=== PATIENT | female | born 1980 | race Caucasian/White ===

== ENCOUNTER → 2018-06-07 | Outpatient (CLI) | payer BC, OTHER ==
[~2018-06-07] MED LIST: PROM25 PO
[2018-06-07 17:17] LABS: Source, Urine Catheter
[2018-06-07 17:50] LABS: Appearance, Urine Clear (Clear); Bilirubin, Urine Neg (Neg); Blood, Urine Neg (Neg); Color, Urine Yellow (P-Yellow); Glucose Qualitative, Urine Neg (Neg); Ketones, Urine Neg (Neg); Leukocyte Esterase, Urine Neg (Neg); Nitrite, Urine Neg (Neg); Protein, Urine Neg (Neg); Specific Gravity, Urine 1.025 (1.003-1.022); Urobilinogen, Urine NORM (Normal)
== END ==
LOC: LAB 17:13 → LAB SHORT 17:13
PROVIDERS: Obstetrics & Gynecology Gynecology
DX: L29.3 Anogenital pruritus, unspecified (principal)
CPT/HCPCS: 81003; 87070; 87205

== ENCOUNTER 2018-06-22 05:55 | Day surgery (SDC) | payer BC, OTHER ==
[~2018-06-22] VITALS: Ht 172.7 cm; Wt 105.0 kg
[~2018-06-22 05:55] MED LIST changes: +IBUP600 PO
--- NOTE | 2018-06-22 07:06 | NUR ---
Ambulatory in Day Surgery History, Chart, Medications and Allergies reviewed before start of procedure. Lungs clear T/O to Auscultation. Patient confirms NPO status and agrees with scheduled surgery. Patient States Post-Procedure ride home has been arranged. Patient ok to have students in OR to observe surgery.
--- NOTE | 2018-06-22 09:09 | NUR ---
RECEIVED REPORT FROM SOFTWARE PRODUCT SPECIALIST (LUCILA). PT IS AWAKE AND WANITING JUICE AND A SNACK. STATES "JUST SOME CRAMPING". DENIES NASUEA. PT SITTING UP. PT HAS 3 LAP SITE INCISION ON ABD. UMBILICUS INCISION DRAINING SMALL AMT OF BLOOD. RN REINFORECED WITH GAUZE/TAPE. WILL REASSESS BEFORE D.C. PT PLEASANT. STATES THAT HER AUNT WILL BE HER RIDE HOME.
--- NOTE | 2018-06-22 09:30 | NUR ---
PT AMBULATED TO THE RESTROOM. VOIDED SUCCESSFULLY, PT STATED SOME BLOOD CAME OUT WHEN SHE VOIDED.
--- NOTE | 2018-06-22 09:40 | NUR ---
Discharge instructions reviewed with patient. Patient verbalizes understanding. Copy given to patient to take home. PT STATES THAT CRAMPING IS GETTING BETTER. PT VOICES NO QUESTIONS OR CONCERNS WITH GOING HOME.
--- NOTE | 2018-06-22 09:48 | NUR ---
RN REASSESSED PT UMBIICAL INCISION. NO LONGER BLEEDING. DRIED BLOOD ON STERI. GAUZE LEFT ON SITE JUST SO NO BLOOD GOT ON PT SHIRT. PT HAS ALL PERSONAL BELONGINGS. PT IS DRESSED, WAITING FOR PT RIDE TO BE READY.
== END 2018-06-22 22:53 | disposition home or self-care (01) ==
LOC: ORSCMMR 05:55 → ORD 07:30 → ORSCMMR 22:53
PROVIDERS: Obstetrics & Gynecology Gynecology
PROC: 0UT74ZZ Resection of Bilateral Fallopian Tubes, Percutaneous Endoscopic Approach (ICD-10-PCS; principal; 2018-06-22 07:30)
DX: Z30.2 Encounter for sterilization (principal); E66.9 Obesity, unspecified; Z68.35 Body mass index [BMI] 35.0-35.9, adult
CPT/HCPCS: 88302; J0690; J1100; J1885; J2250; J2405; J2704; J2710; J3010; J7120

== ENCOUNTER → 2019-11-07 | Outpatient (CLI) | payer BC, OTHER ==
[2019-11-08 16:10] LABS: HPV 16 Negative (Negative); HPV 18 Negative (Negative); HPV OTHER HR TYPES Negative (Negative)
== END ==
LOC: LAB 15:44 → LAB SHORT 15:44
PROVIDERS: Obstetrics & Gynecology
DX: Z01.419 Encounter for gynecological examination (general) (routine) without abnormal findings (principal)
CPT/HCPCS: 87624; G0123

== ENCOUNTER → 2019-12-31 | Outpatient (CLI) | payer BC ==
[2020-01-01 06:23] LABS: Candida species (DNA Probe) Negative (NEGATIVE); G. vaginalis (DNA Probe) Positive (NEGATIVE); T. vaginalis (DNA Probe) Negative (NEGATIVE)
[2020-01-03 06:11] LABS: CHLAMYDIA TRACHOMATIS, NAA Negative (Negative)
== END | disposition home or self-care (01) ==
LOC: LAB 20:09 → LAB SHORT 20:09
PROVIDERS: Family Medicine
DX: N76.0 Acute vaginitis (principal)
CPT/HCPCS: 87086; 87480; 87491; 87510; 87591; 87660

== ENCOUNTER → 2020-11-07 | Outpatient (CLI) | payer BC | END | disposition home or self-care (01) | LOC: LAB SHORT 14:00 → LAB 14:00 | DX: J02.9 Acute pharyngitis, unspecified (principal) | CPT/HCPCS: 87081 ==

== ENCOUNTER → 2021-08-10 | Outpatient (CLI) | payer BC | LOC: PLD 09:25 → LAB SHORT 09:25 | DX: N90.89 Other specified noninflammatory disorders of vulva and perineum (principal) | CPT/HCPCS: 88305 ==

== ENCOUNTER → 2023-08-03 | Outpatient (CLI) | payer BC ==
[2023-08-05 14:20] LABS: Stool Occult Bld Immuno 1 Negative (NEGATIVE); Stool Occult Bld Immuno 2 Negative (NEGATIVE); Stool Occult Bld Immuno 3 Negative (NEGATIVE)
== END ==
LOC: LAB 10:42 → LAB SHORT 10:42 → EDSTATUS 05-10 16:00 → LAB FUT 05-10 16:00
PROVIDERS: Nurse Practitioner Family
DX: Z12.11 Encounter for screening for malignant neoplasm of colon (principal)
CPT/HCPCS: G0328

== ENCOUNTER → 2023-10-02 | Outpatient (CLI) | payer BC ==
[2023-10-06 14:46] LABS: CORTISOL,SALIVA 0.095 ug/dL
== END | disposition home or self-care (01) ==
LOC: LAB 23:00 → LAB SHORT 23:00
PROVIDERS: Nurse Practitioner Family
DX: Z13.220 Encounter for screening for lipoid disorders (principal); Z13.1 Encounter for screening for diabetes mellitus; Z13.0 Encounter for screening for diseases of the blood and blood-forming organs and certain disorders involving the immune mechanism; D50.9 Iron deficiency anemia, unspecified; R53.83 Other fatigue; R00.2 Palpitations; R19.7 Diarrhea, unspecified
CPT/HCPCS: 82533

== ENCOUNTER 2024-03-22 06:40 | Day surgery (SDC) | payer BC ==
[2024-03-22] VITALS (22 sets, daily range): BP systolic 90–122; BP diastolic 57–89
[~2024-03-22] VITALS: Ht 175.3 cm; Wt 85.2 kg
[~2024-03-22 06:40] MED LIST changes: +Lactated Ringer's 1,000 ML IV SCH
[2024-03-22] MEDS ORDERED: HUMIRA PEN40 MG/0.2 SQ (06:55)
[2024-03-22] MEDS ORDERED: propofoL 40 ML IV ONE (06:56)
[2024-03-22] MEDS ORDERED: Benzocaine Oral Spray 0.5ML UD ONE (07:31)
[2024-03-22] MEDS ORDERED: Midazolam HCl 1MG / ML 2ML Vial ONE (07:37)
--- NOTE | 2024-03-22 07:46 | NUR ---
03/22/24 0746 Jojo Oates History, Chart, Medications and Allergies reviewed before start of procedure.CONFIRMED AND REVIEWED H&P, MEDCICATIONS, ALLERGIES, MEDICAL HISTORY, RESPIRATORY HISTORY, VITAL SIGNS, 3-LEAD EKG, CONSENTS, AND PHYSICIAN ORDERS. PATIENT CONFIRMS NPO STATUS AND AGREES WITH SCHEDULED PROCEDURE. MONITOR INTACT WITH CONTINUOUS PULSE OXIMETRY, CAPNOGRAPHY, 3-LEAD EKG, INTERMITTENT BP. SUPPLEMENTAL O2 TO BE TITRATED THROUGHOUT PROCEDURE TO MAINTAIN O2 SATURATION ABOVE 90%. PATIENT DETERMINED TO BE ASA APPROPRIATE FOR PROPOFOL SEDATION PRIOR TO START OF PROCEDURE BY DR. PAVON
--- NOTE | 2024-03-22 08:40 | NUR ---
Patient up to Ambulate independently. Gait steady. Discharge instructions reviewed with patient. Patient verbalizes understanding. Copy given to patient to take home. Patient States Post-Procedure ride home has been arranged. Discharged via wheelchair to private car for ride home. PT TOLERATING PO. REPORTS READY TO GO HOME. PER DR PAVON KEEP/5 YEARS
== END 2024-03-22 08:40 | disposition home or self-care (01) ==
LOC: ORSCMMR 06:40 → ORD 07:30 → ORSCMMR 08:40
PROVIDERS: Internal Medicine Gastroenterology
PROC: 0DB68ZX Excision of Stomach, Via Natural or Artificial Opening Endoscopic, Diagnostic (ICD-10-PCS; principal; 2024-03-22 07:30)
PROC: 0DJD8ZZ Inspection of Lower Intestinal Tract, Via Natural or Artificial Opening Endoscopic (ICD-10-PCS; principal; 2024-03-22 07:30)
PROC: 0DB58ZX Excision of Esophagus, Via Natural or Artificial Opening Endoscopic, Diagnostic (ICD-10-PCS; principal; 2024-03-22 07:30)
PROC: 0DB98ZX Excision of Duodenum, Via Natural or Artificial Opening Endoscopic, Diagnostic (ICD-10-PCS; principal; 2024-03-22 07:30)
PROC: 0DB48ZX Excision of Esophagogastric Junction, Via Natural or Artificial Opening Endoscopic, Diagnostic (ICD-10-PCS; principal; 2024-03-22 07:30)
DX: K62.5 Hemorrhage of anus and rectum (principal); R10.9 Unspecified abdominal pain; R10.13 Epigastric pain; K64.4 Residual hemorrhoidal skin tags; K62.89 Other specified diseases of anus and rectum; K29.70 Gastritis, unspecified, without bleeding; M06.9 Rheumatoid arthritis, unspecified; Z79.899 Other long term (current) drug therapy
CPT/HCPCS: 88305; 88342; A9270; J2250; J2704; J7120

== ENCOUNTER → 2024-08-09 | Outpatient (CLI) | payer BC ==
[~2024-08-09] MED LIST changes: +HUMIRA PEN40 MG/0.2 SQ; -Lactated Ringer's 1,000 ML IV SCH
[2024-08-14 15:49] LABS: HPV HIGH RISK BY TMA Not Detected; HPV SOURCE Cervical/Vag
== END ==
LOC: LAB 13:14 → LAB SHORT 13:14
PROVIDERS: Family Medicine
DX: Z01.419 Encounter for gynecological examination (general) (routine) without abnormal findings (principal)
CPT/HCPCS: 87624; G0123